=== PATIENT | male | born 1960 | race Caucasian/White ===

== ENCOUNTER 2016-05-14 09:32 | Outpatient (CLI) | payer OTHER ==
[2015-07-25 20:42] VITALS: BP 131/76
== END 2016-05-14 09:33 ==
LOC: LAB 09:32
PROVIDERS: ATTEND Family Medicine
DX: E11.9 Type 2 diabetes mellitus without complications (principal)
CPT/HCPCS: 36415; 83036

== ENCOUNTER 2016-08-10 10:49 | Outpatient (CLI) | payer OTHER ==
[2015-07-25 20:42] VITALS: BP 131/76
== END 2016-08-10 10:50 ==
LOC: LAB 10:49
PROVIDERS: ATTEND Family Medicine
DX: E11.9 Type 2 diabetes mellitus without complications (principal)
CPT/HCPCS: 36415; 83036

== ENCOUNTER 2017-03-17 09:29 | Outpatient (CLI) | payer OTHER ==
[2015-07-25 20:42] VITALS: BP 131/76
[2017-03-17 10:18] LABS: eGFR (African) > 60; eGFR (Non-African) > 60
== END 2017-03-17 09:30 ==
LOC: LAB 09:29
PROVIDERS: ATTEND Physician Assistant
DX: E11.9 Type 2 diabetes mellitus without complications (principal); Z13.6 Encounter for screening for cardiovascular disorders
CPT/HCPCS: 36415; 80053; 80061; 83036

== ENCOUNTER 2017-10-05 09:59 | Outpatient (CLI) | payer OTHER ==
[2015-07-25 20:42] VITALS: BP 131/76
== END 2017-10-05 13:26 ==
LOC: LAB 09:59
PROVIDERS: ATTEND Family Medicine
DX: E11.9 Type 2 diabetes mellitus without complications (principal); E78.1 Pure hyperglyceridemia
CPT/HCPCS: 36415; 80061; 83036

== ENCOUNTER 2018-02-23 00:44 | Emergency (ER) | payer OTHER ==
--- NOTE | 2018-02-23 00:54 | ED Physician Documentation ---
Palpitations - HPI Stated Complaint: heart palpitations Chief Complaint: Palpitations Additional Information: Patient presents to ED with heart palpitation since 9 pm toncam. Patient denies chest pain or shortness of breath. He state he has had atrial fibrillation since 2003 secondary to sleep apnea. He was started on digoxin and cpap. Eventually he was taken off his digoxin. He is not on any rate controlling medication or anticoagulant. Tonight he felt some heart palpitations and came to the ED. Upon presentation EKG revealed Atrial fibrillation 91 bpm. Unfortunately, the EKG machine ran out of paper and did not get a good reading. Patient reports he used to take a Beta will, digoxin and aspirin 325mg daily. His prescriptions ran out and he did not follow up to have them refilled so he has not taken any meds in quite some time. He also is not taking his Metformin. Timing: sudden onset Duration: intermittent episodes Context: hx of A-fib Associated Symptoms: denies: chest pain Worsened by:: nothing - ROS CONST: no problems RESP: denies: productive cough GI/: denies: nausea MS/SKIN/LYMPH: denies: leg pain EYES/ENT: none NEURO/PSYCH: none - SOCIAL HX Smoking History: cigarettes, greater than 1 pack/day Alcohol Use: occasionally Drug Use: marijuana - FAMILY HX Family History: none - PAST HX Cardiac Disease: other (sleep apnea) Cardiac Rhythm Problems: A-fib Other History: diabetes Type 2 Surgeries/Procedures: none Allergies/Adverse Reactions: Allergies Allergy/AdvReac Type Severity Reaction Status Date / Time No Known Allergies Allergy Verified 02/23/18 01:08 Home Medications: Ambulatory Orders Medication Instructions Recorded Metoprolol Succinate [Toprol Xl] 25 mg PO DAILY #30 tab.er.24h 02/23/18 - VITAL SIGNS Vital Signs: Vital Signs Temp Pulse Resp BP Pulse Ox 97.8 F 108 H 22 147/82 96 02/23/18 00:45 02/23/18 00:45 02/23/18 00:45 02/23/18 00:45 02/23/18 00:45 - REVIEWED ASSESSMENTS Nursing Assessment Reviewed: Yes Vitals Reviewed: Yes Progress - Results/Orders Results/Orders: 0136 WBC 15.7, Hgb 17.2, Plt 211 0145 Na 138, K 3.7, Cl 101, CO2 26, Glucose 165, Ca 9.3, Alt 45, Ast 37, Alkp 88, Emilio 88. 0152 BNP 11.6, Troponin 0.00 - Progress Progress: 0128 More EKG paper found. Will repeat EKG. Tele shows heart rate 101, still in afib. [address] BP 137/78, HR 92. 0310 Repeat EKG show sinus rhythm at 87 bpm. BP 116/67 tolerating Metoprolol 5mg IV given. - EKG/XRAY/CT Comments: afib 91 bpm - Additional EKG/XRAY/Consults Comments: Sinus tachycardia 100 bpm, RBBB ED Results Lab/Radiology - Radiology Radiology Impressions: Ap portable upright radiographs of the chest Clinical history: Heart palpitations Technique: anterior /posterior portable upright Findings: Lung simmons are hyperinflated. No acute infiltrate is identified. The heart and mediastinal structures are normal. The bony thorax is unremarkable. No pneumothorax or pleural effusion is seen. Impression: Hyperinflation No acute pulmonary disease Electronically signed on Feb 23, 2018 1:39:25 AM LUMP ROLLER by: Holger Cormier I'm reading this as bibasilar pneumonia, will get CT chest with contrast. TECHNIQUE: 5 mm contiguous axial images of the chest with contrast. Sagittal and coronal reconstructions. FINDINGS: There is no evidence of pulmonary embolus. No hilar or mediastinal mass is seen. There calcified hilar and mediastinal lymph nodes. The upper abdomen shows fatty change in the liver Lung windows show emphysematous changes in both lungs. There is a calcified right upper lobe granuloma.. A increased interstitial markings are present especially in the apices consistent withfibrosis IMPRESSION: Moderate to severe emphysema Bilateral fibrosis Old healed granulomatous disease. Negative for pulmonary embolus Fatty change in the liver Electronically signed on Feb 23, 2018 2:34:18 AM LUMP ROLLER by: Holger Cormier - Orders Orders: ED Orders Category Date Time Status Place IV Lock 1T Care 02/23/18 01:25 Active CHEST 1VIEW [RAD] Stat Exams 02/23/[address] CHEST W/ CONTRAST Stat Exams 02/23/18 Taken BLOOD CULTURE Stat Lab 02/23/18 Ordered CBC/PLATELET/DIFF Routine Lab 02/23/18 01:20 Received CMP Routine Lab 02/23/18 01:20 Received NT-proBNP Stat Lab 02/23/18 01:20 Received TROPONIN I (cTnI) Stat Lab 02/23/18 01:20 Received 0.9 % Sodium Chloride [Normal Saline] 1,000 ml Med 12/06/18 01:45 Discontinued IV Q1H Metoprolol Tartrate [Toprol] Med 02/23/18 02:23 Discontinued 5 mg IVP NOW ONE EKG WITH COMPARISON Stat Ther 02/23/18 Ordered Palpitations Physical Exam - EXAM General Appearance: no distress EENT: HUSSEIN NECK: normal inspection, supple RESPIRATORY: no respiratory distress, breath sounds nml CVS: heart sounds normal, irregularly irregular rhy ABDOMEN: soft BACK: no CVA tenderness SKIN: warm/dry, normal color EXTREMITIES: non-tender, no edema NEURO: oriented X3 Discharge Clincal Impression: Pulmonary fibrosis Atrial fibrillation Qualifiers: Atrial fibrillation type: paroxysmal Qualified Code(s): I48.0 - Paroxysmal atrial fibrillation Prescriptions: Metoprolol Succinate [Toprol Xl] 25 mg PO DAILY #30 tab.er.24h Referrals: Jericho Smith MD [Primary Care Provider] - 2 Days Additional Instructions: 1. Take Aspirin 325mg daily to prevent stroke/blood clots 2. Take Metoprolol 25mg daily 3. Call 911 if chest pain, shortness of breath or heart palpitations 4. Follow up with Dr. Smith as soon as possible. You need a cardiology consult as soon as possible. Comments: Patient initial EKG showed afib with HR 93, however, paper ran out of machine. Repeated EKG showed sinus tachycardia. Patient responded to Metoprolol IV. Patient reports he was on a beta will and digoxin previously, the prescriptions ran out and he did not go back to the doctor to get them refilled. Condition: Stable Disposition: 01 HOME, SELF-CARE Decision to Admit: NO Date of Decison to Admit: 02/23/18 Decision Time: 03:27
[2018-02-23] MEDS ORDERED: 0.9 % SODIUM CHLORIDE 1,000 ML IV ONE (01:45)
[2018-02-23] MEDS ORDERED: METOPROLOL TARTRATE 5 MG/5 ML VIAL IVP ONE (02:23)
--- NOTE | 2018-02-23 03:52 | Diagnostic Imaging Report ---
NORAH MORRIS [facility] [address] [facility] [address] [place] [address]. [id number] Report Submission Date: Feb 23, 2018 1:39:25 AM HOUSEHOLD APPLIANCE INSTALLER Patient Study Name: GWENDOLYN SHAH Date: Feb 23, 2018 1:15:56 AM HOUSEHOLD APPLIANCE INSTALLER Modality Type: DX Gender: M Description: CHEST : 60 Institution: [facility] Physician: NORAH MORRIS Ap portable upright radiographs of the chest Clinical history: Heart palpitations Technique: anterior /posterior portable upright Findings: Lung simmons are hyperinflated. No acute infiltrate is identified. The heart and mediastinal structures are normal. The bony thorax is unremarkable. No pneumothorax or pleural effusion is seen. Impression: Hyperinflation No acute pulmonary disease Electronically signed on Feb 23, 2018 1:39:25 AM HOUSEHOLD APPLIANCE INSTALLER by: Holger WERNER
--- NOTE | 2018-02-23 03:53 | Diagnostic Imaging Report ---
NORAH MORRIS [facility] [address] [facility] [address] [place], [place]. [address] Report Submission Date: Feb 23, 2018 2:34:18 AM JUICE TESTER Patient Study Name: GWENDOLYN SHAH Date: Feb 23, 2018 2:09:52 AM JUICE TESTER Modality Type: CT\SR Gender: M Description: CT CHEST W/ CONTRAST : 60 Institution: [facility] Physician: NORAH MORRIS CT chest with contrast Date of study: February 23, 2018 CLINICAL HISTORY: abnormal cxr, soa 95mL's Omnipaque (Hx) / ITS.REASON abnormal chest xray Note time : 02/23/2018 3:19:54 AM User : Anai Bella abnormal cxr, soa 95mL's Omnipaque (DICOM Hx) / ITS.REASON heart palpitations (Pt comments) TECHNIQUE: 5 mm contiguous axial images of the chest with contrast. Sagittal and coronal reconstructions. FINDINGS: There is no evidence of pulmonary embolus. No hilar or mediastinal mass is seen. There calcified hilar and mediastinal lymph nodes. The upper abdomen shows fatty change in the liver Lung windows show emphysematous changes in both lungs. There is a calcified right upper lobe granuloma.. A increased interstitial markings are present especially in the apices consistent withfibrosis IMPRESSION: Moderate to severe emphysema Bilateral fibrosis Old healed granulomatous disease. Negative for pulmonary embolus Fatty change in the liver Electronically signed on Feb 23, 2018 2:34:18 AM JUICE TESTER by: Holger WERNER
[2018-02-23 04:02] VITALS: BP 116/67
[2018-02-23 07:29] LABS: EOSINOPHILS % 2.1 % (0.0-6.8); MONOCYTES % 6.6 % (0.0-11.0); NEUTROPHILS # 10.7 # k/uL (1.4-7.7)
[2018-02-23 07:30] LABS: eGFR (Non-African) > 60
== END 2018-02-23 03:40 | disposition home or self-care (01) ==
LOC: ED 00:44
DX: J84.10 Pulmonary fibrosis, unspecified (principal); I48.0 Paroxysmal atrial fibrillation; B95.7 Other staphylococcus as the cause of diseases classified elsewhere; Z16.24 Resistance to multiple antibiotics; Z72.0 Tobacco use
CPT/HCPCS: 36415; 71045; 71260; 80053; 83880; 84484; 85025; 87040; 87186; 93005; 96374; 99284; 99285; J3490; J7030; Q9967; S1016

== ENCOUNTER 2018-02-25 08:38 | Emergency (ER) | payer OTHER ==
--- NOTE | 2018-02-25 08:44 | ED Physician Documentation ---
Chest Pain - HISTORIAN Historian: patient - HPI Stated Complaint: chest pain Chief Complaint: Chest Pain Additional Information: Patient, with a past medical history of paroxysmal atrial fibrillation, smoking, DM2 presents to ED after sudden onset of substernal/left sided chest pain, sharp stabbing, 8/10, with radiation to left shoulder/arm. He states the pain started this morning when he went outside in the cold to start his vehicle. Over the course of 30 mintues he was in and out of the cold loading his vehicle and the chest pain increased. He took ASA 325mg this morning. Once he arrived to ED his chest pain had subsided. Of note: patient was diagnosed with atrial fibrillaiton in 2003. He was prescribed digoxin, beta will and daily aspirin at that time. He took a 90 day supply of these medications, then stopped taking them because the prescription ran out. He then under went Cardioversion for his afib in 2007 and has not been on any medications since that time. Onset: hours (1) Timing: sudden onset, resolved on arrival to ED Duration: sudden-onset Last known Well Date: 02/22/18 Last Known Well Time: 09:00 Context: activity (out in cold weather) Severity: moderate Quality: sharp, stabbing Chest Pain Radiation: other (left shoulder/arm) Chest Pain Signs/Symptoms: denies: nausea, vomiting, dyspnea, palpitations Worsened By: other (cold air) Relieved By: aspirin - ROS CONST: denies: fever MS/LYMPH: denies: ankle swelling GI/: denies: vomiting, nausea EYES/ENT: denies: sore throat SKIN/ENDO: denies: rash NEURO/PSYCH: denies: headache - PAST HX [place] risk factors: diabetes Type 2, cardiac disease, A-Fib DVT/PE Risk Factors: none TAD/AAA risk factors: none Neuro deficit: none GI disease: none Lung disease: COPD, other (pulmonary fibrosis) Surgeries/Procedures: none Allergies/Adverse Reactions: Allergies Allergy/AdvReac Type Severity Reaction Status Date / Time No Known Allergies Allergy Verified 02/25/18 09:06 Home Medications: Ambulatory Orders Medication Instructions Recorded Metoprolol Succinate [Toprol Xl] 25 mg PO DAILY #30 tab.er.24h 02/23/18 Aspirin [Yue] 325 mg PO D 02/25/18 - SOCIAL HX Smoking History: cigarettes, greater than 1 pack/day Alcohol Use: occasionally Drug Use: marijuana - FAMILY HX Family HX: CAD under 55 (mother, father, brother, and sister) - VITAL SIGNS Vital Signs: Vital Signs Temp Pulse Resp BP Pulse Ox 116/67 02/23/18 03:40 - REVIEWED ASSESSMENTS Nursing Assessment Reviewed: Yes Vitals Reviewed: Yes Progress - Progress Progress: 1015 Discussed with Devang bed control at [facility] for possible transfer. Awaiting Physician contact. [address] Angela Furniture Inspector at [facility], Agrees with transfer for further cardiology work up. 1139 EMS here to transport to [facility] - EKG/XRAY/CT Comments: sinus amparo av block, rbbb ED Results Lab/Radiology - Radiology Radiology Impressions: Rn Wellness to anterior and lateral chest Clinical history: Chest pain Comparison 2 days earlier Technique: Pa and lateral standing upright radiographs Findings: The lung simmons are hyperinflated with flattening of the hemidiaphragms. There is no mass infiltrate or pleural effusions. Thoracic spondylosis is present. Aortic arch calcification is present. Impression: Emphysema No acute infiltrate Electronically signed on Feb 25, 2018 9:42:52 AM MEDICAL CASH POSTER by: Holger Cormier Chest Pain Physical Exam - EXAM General Appearance: no acute distress, alert EENT: HUSSEIN Neck: nml inspection Respiratory: no resp. distress, decreased air movement CVS: irregularly irreg. rhythm, bradycardia Abdomen: soft, normal bowel sounds, non-tender Skin: warm/dry Extremities: non-tender, no edema Neuro: oriented X3, motor nml Discharge Clincal Impression: Bradycardia Chest pain Qualifiers: Chest pain type: precordial pain Qualified Code(s): R07.2 - Precordial pain Referrals: Jericho Smith MD [Primary Care Provider] - 2 Days Additional Instructions: Will transfer to [facility]. Accepting Physician is Dr. Vaz, cardiology. Condition: Stable Disposition: XFER SHT-TRM HOSP Decision to Admit: [id number] Date of Decison to Admit: 02/25/18 Decision Time: 11:11
--- NOTE | 2018-02-25 09:59 | Diagnostic Imaging Report ---
NORAH MORRIS [facility] [address] [facility] [address] [address] Report Submission Date: Feb 25, 2018 9:42:52 AM ASSISTANT DEAN OF STUDENTS Patient Study Name: GWENDOLYN SHAH Date: Feb 25, 2018 9:14:18 AM ASSISTANT DEAN OF STUDENTS Modality Type: DX Gender: M Description: CHEST : 60 Institution: [facility] Physician: NORAH MORRIS Geospatial Program Management Officer to anterior and lateral chest Clinical history: Chest pain Comparison 2 days earlier Technique: Pa and lateral standing upright radiographs Findings: The lung simmons are hyperinflated with flattening of the hemidiaphragms. There is no mass infiltrate or pleural effusions. Thoracic spondylosis is present. Aortic arch calcification is present. Impression: Emphysema No acute infiltrate Electronically signed on Feb 25, 2018 9:42:52 AM ASSISTANT DEAN OF STUDENTS by: Holger WERNER
[2018-02-25 11:51] VITALS: BP 123/57
[2018-02-27 10:33] LABS: MEAN CORPUSCULAR HEMOGLOBIN 32.2 pg (28.0-34.0); MONOCYTES % 6.1 % (0.0-11.0)
[2018-02-27 10:34] LABS: BASOPHILS % 0.7 (0.0-1.5)
[2018-02-27 10:35] LABS: eGFR (Non-African) > 60
== END 2018-02-25 11:45 | disposition short-term general hospital (02) ==
LOC: ED 08:38
DX: R00.1 Bradycardia, unspecified (principal); R07.2 Precordial pain; Z72.0 Tobacco use
CPT/HCPCS: 36415; 71046; 80053; 84484; 85025; 99285; S1016